=== PATIENT | male | born 1940 | race Caucasian/White ===

== ENCOUNTER 2023-09-30 07:32 | Outpatient (CLI) | payer MEDICARE, SELFPAY | END 2023-09-30 07:33 | disposition home or self-care (01) | LOC: OP CLINIC 07:35 | PROVIDERS: PCP Family Medicine; Visit Provider Internal Medicine Gastroenterology | DX: R19.5 Other fecal abnormalities (principal); K63.5 Polyp of colon; K62.1 Rectal polyp | CPT/HCPCS: 45380; 45385; 88305 ==